=== PATIENT | female | born 1945 | race Caucasian/White ===

== ENCOUNTER 2018-11-30 08:34 | Inpatient (IN) ==
[2018-11-24 15:03] LABS: Appearance,Urine CLEAR; Bacteria,Urine 0 /hpf (0); Bilirubin,Urine NEG (NEG); Color,Urine YELLOW; Glucose,Urine (UA) NEGATIVE (NEG); Leukocyte Esterase,Urine 75 /uL (NEG); Mucus,Urine FEW /hpf (0); Protein,Urine NEG (NEG); Specific Gravity,Urine 1.012 (1.000-1.035); Urine Blood NEG mg/dL (<0.03); Urine Hyaline Cast 1 /lpf (0-2); Urine RBC 2 /hpf (0-1); Urine Squamous Epithelial Cell 3 /hpf (0-4); Urine WBC 2 /hpf (0-4); Urobilinogen,Urine NEG (NEG)
[2018-11-24 16:34] LABS: Basophils # (Auto) 0.1 K/mcL (0.0-0.3); Basophils % (Auto) 0.7 % (0.0-2.0); Eosinophils # (Auto) 0.5 K/mcL (0.0-0.7); Eosinophils % (Auto) 6.1 % (0.0-7.0); Granulocytes % (Auto) 57.9 % (38.0-78.0); Lymphocytes # (Auto) 2.2 K/mcL (1.5-4.8); Lymphocytes % (Auto) 27.3 % (15.5-49.0); Mean Cell Volume 89.6 fL (80.0-100.0); Mean Corpuscular HGB Conc 32.6 g/dL (31.0-36.0); Monocytes # (Auto) 0.6 K/mcL (0.1-0.9); Platelet Count 312 K/mcL (140-440); RBC 5.08 M/mcL (4.00-5.20); Red Cell Distribution Width 13.4 % (11.5-14.5)
[2018-11-24 16:37] LABS: Blood Urea Nitrogen 12 mg/dl (8-23)
[~2018-11-30 08:34] MED LIST: PREGABALIN 75 MG CAPSULE PO SCH; ceFAZolin 1 GM VIAL IV SCH; oxyCODONE 10 MG TAB.ER.12H PO SCH
[2018-11-30] MEDS ORDERED: PROPOFOL 200 MG/20 ML VIAL IV ONE (10:55)
[2018-11-30] MEDS ORDERED: fentaNYL 100 MCG/2 ML VIAL IV ONE (10:55)
[2018-11-30] MEDS ORDERED: TRANEXAMIC ACID 1,000 MG/10 ML VIAL IV ONE ×2 (10:55→12:18)
[2018-11-30] MEDS ORDERED: SUCCINYLCHOLINE 20 MG/ML ML IV ONE (10:55)
[2018-11-30] MEDS ORDERED: ONDANSETRON 4 MG/2 ML VIAL IV ONE (10:55)
[2018-11-30] MEDS ORDERED: MIDAZOLAM 2 MG/2 ML VIAL IV ONE (10:55)
[2018-11-30] MEDS ORDERED: LIDOCAINE HCL/PF 100 MG/5 ML SYRINGE IV ONE (10:55)
[2018-11-30] MEDS ORDERED: ePHEDrine 50 MG/ML AMPUL IV ONE (10:55)
[2018-11-30] MEDS ORDERED: GLYCOPYRROLATE 0.2 MG/ML VIAL IV ONE (10:55)
[2018-11-30] MEDS ORDERED: PHENYLEPHRINE 10 MG/ML VIAL IV ONE (10:55)
[2018-11-30] MEDS ORDERED: DEXAMETHASONE 10 MG/ML VIAL IV ONE (10:55)
[2018-11-30] MEDS ORDERED: KETAMINE 100 MG/ML ML IV ONE (10:55)
[2018-11-30] MEDS ORDERED: ROPIVACAINE HCL/PF 20 ML VIAL IJ ONE (10:55)
[2018-11-30] MEDS ORDERED: IPRATROPIUM/ALBUTEROL 3 ML AMPUL.NEB NEB PRN (11:59)
[2018-11-30] MEDS ORDERED: METHOCARBAMOL 1,000 MG/10 ML VIAL IV PRN (11:59)
[2018-11-30] MEDS ORDERED: NALOXONE HCL 0.4 MG/ML VIAL IV PRN (11:59)
[2018-11-30] MEDS ORDERED: BENZOCAINE/MENTHOL 1 LOZENGE PO PRN ×2 (11:59→12:18)
[2018-11-30] MEDS ORDERED: LACTATED RINGERS 250 ML IV PRN (11:59)
[2018-11-30] MEDS ORDERED: ACETAMINOPHEN 1,000 MG/100 ML BOTTLE IV ONE (11:59)
[2018-11-30] MEDS ORDERED: FLUMAZENIL 0.1 MG/ML ML IV PRN (11:59)
[2018-11-30] MEDS ORDERED: ONDANSETRON 4 MG/2 ML VIAL IV PRN ×2 (11:59→12:18)
[2018-11-30] MEDS ORDERED: MEPERIDINE 25 MG/ML SYRINGE IV PRN (11:59)
[2018-11-30] MEDS ORDERED: LACTATED RINGERS 1,000 ML IV SCH (12:00)
--- NOTE | 2018-11-30 12:17 | Discharge Summary ---
Ortho Discharge - TSA - Patient Instructions Diet: Regular Diet Activity: non weight bearing Total Shoulder Protocol: Leave immobilizer in place except for bathing and ROM. Abduction pillow. Continue to wear sling until seen by physician. Codman Pendulum : These exercises use momentum produced by your body to move your shoulder joint. Bend your knees and shift your weight to your front leg, then back, allowing your arm to swing in the same directions. Using the same technique, alternately shift your weight between your right and left legs, allowing your arm to swing from side to side. These exercises are also performed in counterclockwise and clockwise circular motions. Typically these exercises are performed several times per day, for a set number repetitions or minutes, such as 20 times in a row or 5 minutes at a time. Dressing Care: May shower in 2 days - Follow Up Plan Follow Up Appointments: Karolina Cardenas PA-C [Physician Adjunct Physical Education Instructor] - 12/15/18 1:00 pm Disposition: Home, Self-Care Prognosis: Good Rehab Potential: Good I certify that the patient requires SNF services: No Overall status at discharge: patient is progressing back to baseline
--- NOTE | 2018-11-30 12:17 | Brief Operative Note ---
Pre-op diagnosis: right shoulder rtc tear arthropathy Post-op diagnosis: same Procedure: right reverse total shoulder arthroplasty Grafts/Implants: Yes Anesthesia: GETA Complications: none Surgeon: Francisco Javier Lee Photocopier Technician: Karolina Cardenas Estimated blood loss (cc): 100 Specimens Removed/Pathology: none sent Condition: stable Disposition: PACU
[2018-11-30] MEDS ORDERED: KETOROLAC 15 MG/ML VIAL IV PRN (12:18)
[2018-11-30] MEDS ORDERED: BISACODYL 10 MG SUPP.RECT PR PRN (12:18)
[2018-11-30] MEDS ORDERED: ONDANSETRON 4 MG ODT TABLET SL PRN (12:18)
[2018-11-30] MEDS ORDERED: METHOCARBAMOL 750 MG TABLET PO PRN (12:18)
[2018-11-30] MEDS ORDERED: MAGNESIUM HYDROXIDE 30 ML ORAL.SUSP PO PRN (12:18)
[2018-11-30] MEDS ORDERED: POLYETHYLENE GLYCOL 3350 17 GM PACKET PO PRN (12:18)
[2018-11-30] MEDS ORDERED: FLEETS ADULT ENEMA PR PRN (12:18)
--- NOTE | 2018-11-30 12:43 | Operative Note ---
DATE OF OPERATION: 11/30/2018 PREOPERATIVE DIAGNOSIS: Right shoulder rotator cuff tear arthropathy. POSTOPERATIVE DIAGNOSIS: Right shoulder rotator cuff tear arthropathy. PROCEDURE: Right reverse total shoulder arthroplasty. SURGEON: Taye Lee M.D. TAKER OFF HEMP FIBER SURGEON: Karolina Cardenas PA-C. ANESTHESIA: General. ESTIMATED BLOOD LOSS: 100 mL. COMPLICATIONS: None noted. SPECIMENS REMOVED: None. DRAINS: None. IMPLANTS: DePuy STEPHENS-coated cementless Metaglene; DePuy Delta XTend locking metaglene screw 4.5 x 30 x 2 and 4.5 x 18 nonlocking x2; DePuy Delta XTend glenosphere 38 mm standard; DePuy Delta XTend modular eccentric epiphysis size 2 right, STEPHENS-coated cementless; DePuy Delta XTend modular humeral stem STEPHENS-coated cementless size 10; DePuy Delta XTend humeral polyethylene cup 38, +3 standard. INDICATIONS: The patient has had a longstanding history of worsening pain in the shoulder that has failed conservative treatment. Radiographs have confirmed advanced degenerative joint disease and a failed rotator cuff. After a long discussion about treatment options, the patient elected to proceed with a reverse total shoulder arthroplasty. The risks and benefits were discussed with the patient in detail including, but not limited to, the risks of anesthesia, problems with the heart or lungs related to anesthesia, infection, compromise or injury to the nerves and blood vessels, deep venous thrombosis, pulmonary embolism, pneumonia, continued pain after surgery, worsening pain or symptoms after surgery, swelling, loss of motion, instability, fracture, arm length discrepancy, and need for repeat surgery. DESCRIPTION OF PROCEDURE: The patient was seen in the preanesthesia waiting room where all questions were answered and the correct side and site were identified and marked. The patient was transferred to the operating room and administered the anesthetic and given preoperative antibiotics. A time-out was then called. The patient was placed in the modified beach chair position with all prominences well padded. The extremity was prepped and draped from the fingers up to the neck. A standard deltopectoral skin incision was created. Dissection was carried down to the deltopectoral groove and the cephalic vein was isolated medially and retracted laterally with the deltoid. Retractors were placed and the coracobrachialis was split up to the coracoacromial ligament allowing retraction of the conjoined tendon. We split the subscapularis 1 cm medial to the bicipital groove and extended the split into the rotator interval. This was tagged for later repair. The supraspinatus and infraspinatus had been previously torn and retracted. The biceps tendon had previously been tenodesed. A capsular release was performed in a posterior subperiosteal direction along the humerus. The humeral head was then dislocated. We established intramedullary access and hand reamed up to get good cortical chatter with the DePuy Delta XTEND reverse total shoulder instrumentation. We then used the intramedullary guide and set to about 5 degrees of retroversion. The proximal humerus cut was performed and osteophytes were removed. A metal protector plate was then placed. Attention was then turned to the glenoid. Retractors were placed for optimal visualization and the labrum was excised in its entirety. A centralizing Steinmann pin was placed just into the posterior inferior quadrant in a standard fashion. We reamed over the pin to remove all the cartilage and get to a good base for the prosthesis. The drill was then placed over for the central peg. A cementless Metaglene was then impacted into place. We then drilled, measured, and placed the four screws starting inferior, then superior, then anterior, and finally posterior. The superior locking screw was lined up at the base of the coracoid process. We then impacted the head onto the Metaglene and tightened down in a standard fashion. Attention was then turned back to the humerus. Proximal reaming was performed off the intramedullary guide into the humeral head, using the eccentric guide to allow best coverage. We again set version and broached up to a stable implant. Trials were placed and good tension, motion, and stability were obtained at this point. Trials were removed and the final press fit femoral prosthesis was impacted into place with measured version. The final polyethylene was placed and the shoulder was reduced and again checked for motion, tension, and stability. We irrigated with 3 liters of antibiotic saline and closed the subscapularis with # 2 FiberWire. We irrigated again and closed the deltopectoral interval with several # 0 Vicryl figure of eight sutures. The subcutaneous layer was closed with 2-0 Vicryl and the skin was closed with Dermabond. A sterile pressure dressing was applied and the patient was placed into an abduction sling. All needle and sponge counts were correct. The patient was transferred to the recovery room in stable condition. SARA:[email or web address] Job ID: [id number] Doc ID: [id number] Taye Lee MD
[2018-11-30] MEDS: fentaNYL 100 MCG/2 ML VIAL IV PRN ×4 (12:49→13:31)
--- NOTE | 2018-11-30 13:09 | XRay Report ---
CLINICAL INFORMATION: Post-OP Total Shoulder COMPARISON: None. FINDINGS: Total shoulder prosthesis is anatomically aligned. No osseous abnormality. Soft tissue swelling noted. IMPRESSION: Negative Interpreted and Authenticated by: Francisco Javier Howard 11/30/18
[2018-11-30] MEDS: 0.9 % SODIUM CHLORIDE 1,000 ML IV SCH ×2 (15:57→22:05)
[2018-11-30] MEDS: 0.9 % SODIUM CHLORIDE 10 ML SYRINGE IV SCH ×2 (15:57→21:13)
[2018-11-30] MEDS: ceFAZolin 1 GM VIAL IV SCH (18:05)
[2018-11-30] MEDS ORDERED: LOSARTAN 50 MG TABLET PO SCH (21:00)
[2018-11-30] MEDS ORDERED: SENNOSIDES 1 TABLET PO SCH (21:00)
[2018-11-30] MEDS: DOCUSATE SODIUM 100 MG CAPSULE PO SCH (21:11)
[2018-12-01] MEDS: HYDROcodone/APAP 10/325MG TABLET PO PRN ×3 (01:42→10:14)
[2018-12-01] MEDS: ceFAZolin 1 GM VIAL IV SCH (02:35)
[2018-12-01] MEDS: 0.9 % SODIUM CHLORIDE 1,000 ML IV SCH (06:03)
[2018-12-01] MEDS: 0.9 % SODIUM CHLORIDE 10 ML SYRINGE IV SCH (06:04)
--- NOTE | 2018-12-01 07:49 | Orthopedic Progress Note ---
Subjective Patient information: Note initiated : 12/01/18 at 7:48 am Service Date, if different from initiated Date: [] Patient: Sonja Dyer 73 y/o F admitted on 11/30/18 for Right Reverse Total Shoulder Arthroplasty Possible. Chief Complaint: [] Interval history: doing well. no complaints Objective Vital signs: Vital Signs Temp Pulse Resp BP BP Pulse Ox 12/01/18 03:00 98.1 F 78 20 113/58 94 12/01/18 00:00 97.9 F 94 H 20 120/72 97 11/30/18 21:13 96 11/30/18 19:43 97.3 F 94 H 20 118/68 96 11/30/18 17:23 96.7 F L 84 140/88 94 11/30/18 15:58 82 111/66 99 11/30/18 15:00 92 H 118/72 97 11/30/18 14:44 76 113/64 98 11/30/18 14:28 81 130/72 97 11/30/18 14:13 81 126/65 98 11/30/18 13:58 81 124/72 98 11/30/18 13:27 98.1 F 77 14 158/73 99 11/30/18 13:14 97.5 F 80 14 140/53 100 11/30/18 13:01 97.3 F 73 12 134/56 100 11/30/18 12:47 97.7 F 81 14 142/45 100 11/30/18 12:42 88 16 140/77 100 11/30/18 12:37 87 14 151/83 99 11/30/18 12:32 80 17 148/81 98 11/30/18 09:27 97.3 F 68 18 130/77 98 11/30/18 08:34 18 Intake and Output 11/30/18 12/01/18 12/01/18 21:59 05:59 13:59 Intake Total 540 500 996 Output Total 650 400 Balance -110 100 996 Intake: IV 996 Sodium Chloride 0.9% 1,000 ml @ 996 125 mls/hr IV .Q8H [facility] Rx#: [id number] Oral 540 500 Output: Void Amount 650 400 Other: Meal Dinner Percent of Meal Consumed 100% Feeding Ability Assist with Tray Set Up Urine Appearance Clear Urine Color Straw Urine Odor Normal # Voids 1 Weight 153 lb Intake & Output: Intake & Output 11/30/18 12/01/18 12/01/18 21:59 05:59 13:59 Intake Total 540 500 996 Output Total 650 400 Balance -110 100 996 Weight 153 lb Intake: IV 996 Sodium Chloride 0.9% 1,000 ml @ 996 125 mls/hr IV .Q8H [facility] Rx#: [id number] Oral 540 500 Output: Void Amount 650 400 Other: Meal Dinner Percent of Meal Consumed 100% Feeding Ability Assist with Tray Set Up Urine Appearance Clear Urine Color Straw Urine Odor Normal # Voids 1 Incision: Yes healing Incision clean and dry: Yes Dressing: Yes clean, Yes dry, Yes intact Weight bearing status: non Neurological exam IM: Yes alert, Yes normal gait, Yes oriented X3, Yes motor sensory intact, Yes neurovascular intact Extremities exam IM: No calf tenderness, Yes Foot pink and warm, Yes neurovascular intact - Labs CBC & BMP: 12/01/18 05:20 11/24/18 14:16 Labs: 12/01/18 11/24/18 05:20 14:16 Hgb 11.8 L 14.9 Hct 35.7 L 45.5 Assessment and Plan (1) Osteoarthritis, shoulder pod 1 s/p reverse tsa nwb pain control sling pt home today Status: Acute
[2018-12-01] MEDS: DOCUSATE SODIUM 100 MG CAPSULE PO SCH (08:45)
[2018-12-01] MEDS ORDERED: PNEUMOCOCCAL 23-VAL P-SAC VAC 0.5 ML SYRINGE IM ONE (10:00)
[2018-12-01] MEDS ORDERED: KETOROLAC 30 MG/ML VIAL IV PRN (12:15)
== END 2018-12-01 12:45 | disposition home or self-care (01) | DRG 483 ==
LOC: MEDSUR 08:34
PROVIDERS: ADMIT Orthopaedic Surgery Sports Medicine; ATTEND Orthopaedic Surgery Sports Medicine